=== PATIENT | female | born 2005 | race Caucasian/White ===

== ENCOUNTER 2024-11-30 17:05 | Emergency (ER) | payer OTHER ==
[~2024-11-30] VITALS: Ht 167.6 cm; Wt 72.0 kg
[~2024-11-30 17:05] MED LIST: METF-444 PO
[2024-11-30 17:07] VITALS: TEMP 98.2
[2024-11-30] MEDS ORDERED: SEMA1PEN3 SQ (17:07)
[2024-11-30] MEDS ORDERED: METF-1211 PO (17:07)
[2024-11-30] MEDS ORDERED: POLY119P3 PO (18:06)
[2024-11-30] MEDS ORDERED: HYDR30CR3 TP (18:06)
[2024-11-30 18:23] VITALS: BP 118/80; PULSE 72; RESP 18; O2SAT 100
== END 2024-11-30 18:24 | disposition home or self-care (01) ==
LOC: EMS 17:05
DX: K60.2 Anal fissure, unspecified (principal); K59.00 Constipation, unspecified; E11.9 Type 2 diabetes mellitus without complications; Z79.84 Long term (current) use of oral hypoglycemic drugs; Z79.85 Long-term (current) use of injectable non-insulin antidiabetic drugs
CPT/HCPCS: 99282; Z7502